=== PATIENT | female | born 1975 | race Caucasian/White ===

== ENCOUNTER → 2021-01-03 | Outpatient (CLI) | payer OTHER ==
[2021-01-04 11:13] LABS: RHEUMATOID ARTHRITIS FACTOR <10.0 IU/mL (0.0-13.9)
== END ==
LOC: LAB 11:15
PROVIDERS: Internal Medicine
DX: M25.552 Pain in left hip (principal); M79.10 Myalgia, unspecified site; M25.50 Pain in unspecified joint; G89.29 Other chronic pain; Z87.898 Personal history of other specified conditions
CPT/HCPCS: 36415; 73502; 82550; 83520; 84439; 84443; 85652; 86140; 86200; 86431